=== PATIENT | female | born 2000 | race Caucasian/White ===

== ENCOUNTER 2023-06-18 15:13 | Outpatient (OUT) | payer BC, SELFPAY ==
--- NOTE | 2023-06-18 15:27 | US_ITS ---
[facility] [id number] Patient Name: DUNIA ENCARNACION MRN: [id number] date: 2000 Sex: F Assigned Patient Location: Current Patient Location: Accession/Order Number: [id number] Exam Date: 06/18/2023 16:00 Report Date: 06/19/2023 17:40 At the request of: CARINE COTO Procedure: US pelvis w/ transvaginal EXAMINATION: US pelvis w/ transvaginal HISTORY: Menorrhagia, irregular cycles COMPARISON: No relevant comparison available. FINDINGS: Transabdominal and transvaginal images The uterus is normal in size, contour and myometrial echotexture measuring 9.3 x 4.5 x 3.6 cm, anteflexed. No focal mass. The endometrium measures 3.6 mm, normal. The right ovary is normal measuring 2.6 x 1.6 x 1.5 cm. Normal color and Doppler flow. Anechoic exophytic area measuring 0.9 cm likely a cyst or follicle The left ovary is normal measuring 3.5 x 1.3 x 1.8 cm. Normal color Doppler flow No free fluid US/US pelvis w/ transvaginal IMPRESSION: Normal pelvic ultrasound Electronically authenticated by: LAURA FLOR Date: 06/19/2023 17:40
== END 2023-06-18 15:14 | disposition home or self-care (01) ==
LOC: US 15:19
PROVIDERS: PCP Nurse Practitioner; Visit Provider Nurse Practitioner
DX: N92.5 Other specified irregular menstruation (principal)
CPT/HCPCS: 76830; 76856

== ENCOUNTER 2024-07-11 07:03 | Emergency (ER) | payer OTHER, SELFPAY ==
[2024-07-11 07:07] VITALS: BP 138/88; PULSE 110; TEMP 37.4; O2SAT 99; BMI 33.3
--- OUTSIDE RECORDS SUMMARY | 2024-07-11 07:17 | XMS_ITS | CCD ---
Author Organization [facility] Care Team Providers Care Manager System Name Role Phone HOUSE, DR OSEGUERA Admitting Unavailable HOUSE, DR OSEGUERA Attending Unavailable [facility] [place] BELTRE Primary Care Unavailable HOUSE, DR OSEGUERA Consulting Unavailable SELMA WALKER Consulting Unavailable Digna Villanueva Unavailable ValSoraida obreogn Primary Care Physician Val, INDUCTION HEATING EQUIPMENT SETTER Soraida L Attending Unavailable Val, INDUCTION HEATING EQUIPMENT SETTER Soraida L Attending Unavailable Val, INDUCTION HEATING EQUIPMENT SETTER Soraida L Admitting Unavailable Val, INDUCTION HEATING EQUIPMENT SETTER Soraida Luis Attending Unavailable Val, INDUCTION HEATING EQUIPMENT SETTER Soraida L Attending Unavailable Val, INDUCTION HEATING EQUIPMENT SETTER Soraida L Attending Unavailable Allergies Allergy Classification Reported Allergen(s) Allergy Type Date of Onset Reaction(s) Facility (1 source) No Known Medication Allergies; Translations: [No Known Medication Allergies] Propensity to adverse reactions (disorder) [facility] Repository Problems Active Problems Problem Classification Problem Date Documented Da te Episodic/Chronic Administrative/social admission (1 source) Encounter for pre-employment examination Episodic Genitourinary symptoms and ill-defined conditions (1 source) Bacteriuria 05-30-2020 Episodic Malaise and fatigue (1 source) Fatigue 06-18-2023 Episodic Menstrual disorders (1 source) Menorrhagia 06-18-2023 Chronic Other and delivery including normal (1 source) Normal 05-30-2020 Episodic Residual codes; unclassified (1 source) H/O: ectopic 09-28-2019 Episodic Past or Other Problems Problem Classification Problem Date Documented Da te Episodic/Chronic Unclassified (3 sources) Onset: 10-26-2018 Resolved: 04-18-2020 01-09-2019 Results Test Name Value Interpretation Reference Range Facility Ambulatory Visit Summaryon 0 03-31-2024 Ambulatory Visit Summary Ambulatory Visit Summary FLOR ENCARNACION :2000 Visit Date:03/31/2024 Ambulatory Visit Instructions Your Diagnosis BMI 32.0-32.9,adult Non-smoker Your Care Team Attending Physician - Soraida Sesay Primary Care Physician - Soraida Sesay Procedures Performed Left fallopian tube (06/09/2019), Removal of ectopic from fallopian tube (06/09/2019). Discharge Vitals Heart Rate (Peripheral) 100 Respiratory Rate 18 Blood Pressure 108/76 Height 154.0 cm Height 61 in Weight 75.90 kg Weight 167.331 lb BMI 32 Allergies No Known Allergies No Known Medication Allergies Problems Ongoing - Any problem that you are currently receiving treatment for. Fatigue Hx of ectopic Menorrhagia Historical - Any problem that you are no longer receiving treatment for. GBS bacteriuria Supervision of normal in third trimester Patient Survey You may receive a survey via text or e-mail asking about your office visit. Please share your experience with us by completing your survey. We appreciate your feedback and thank you for choosing us for your care. Normal [facility] Family Medicine Office/Clini c Noteon 03-31-2024 Family Medicine Office/Clinic Note Family Medicine Office/Clinic Note HPI Staff Flor is a 23 year old female presenting for Control Pt here today to have nexplanon implant Pt did stop taking the metformin due to feeling light headed and nauseated. Did get past having diarrhea. History of Present Illness pt presents today for nexplanon insertion Review of Systems PHQ Score Initial Depression Screen Score: 0 SCORE Physical Exam Vitals & Measurements HR: 100(Peripheral) RR: 18 BP: 108/76 SpO2: 99% HT: 61 in HT: 154.0 cm WT: 75.90 kg WT: 167.331 lb BMI: 32 General: alert, no acute distress ENMT: oral mucosa moist, no pharyngeal erythema or exudate Cardiovascular: regular rate and rhythm, normal peripheral perfusion Respiratory: Lungs CTA, respirations non labored Extremities: no deformity, no trauma Neurological: oriented x 4, LOC appropriate for age, CN II-XII intact, motor strength equal & normal bilaterally, speech normal Procedure The patient was placed in the dorsal supine position with her non-dominant right arm flexed at the elbow and externally rotated. The area for insertion was marked approximately 8 cm from the medial epicondyle of the humerus over the triceps muscles. The area of planned insertion was prepped with {Betadin. 3cc of 1% lidocaine was injected subdermally along the planned insertion tunnel. The Nexplanon applicator was grasped, the protection cap was removed from the applicator and the white Nexplanon device was visualized within the applicator. The applicator needle was inserted subdermally in the standard fashion, and the device was deployed. The implant was palpated to verify correct subdermal location by myself and the patient. The site dressed with a pressure bandage. User card was completed after insertion and given to patient Assessment/Plan 1. Nexplanon insertion (Z30.017: Encounter for initial prescription of implantable subdermal contraceptive) pt presents today for nexplanon insertion. consent signed. time out complete. see procedure note for details. all questions answered.RTC as needed Ordered: etonogestrel, 68 mg = 1 EA, SubCutaneous, Once, Inserted in office, # 1 EA, Refills(s) 0, other reason (Rx) E&M of Est. Patient Low 20-29 Min 21149 Insert/drug delivery implant 25722 2. BMI 32.0-32.9,adult (Z68.32: Body mass index [BMI] 32.0-32.9, adult) BMI education Ordered: etonogestrel, 68 mg = 1 EA, SubCutaneous, Once, Inserted in office, # 1 EA, Refills(s) 0, other reason (Rx) E&M of Est. Patient Low 20-29 Min 43523 Insert/drug delivery implant 99565 3. Non-smoker (Z78.9: Other specified health status) continue not smoking Ordered: etonogestrel, 68 mg = 1 EA, SubCutaneous, Once, Inserted in office, # 1 EA, Refills(s) 0, other reason (Rx) E&M of Est. Patient Low 20-29 Min 33373 Insert/drug delivery implant [id number] Orders: metformin, 500 mg = 1 tab(s), Oral, BID, # 60 tab(s), Refills(s) 5, Pharmacy: [facility]/pharmacy #[id number], 154, cm, 06/18/23 14:43:00 EDT, Height/Length Dosing, 79.9, kg, 06/18/23 14:43:00 EDT, Weight Dosing metformin, 500 mg = 1 tab(s), Oral, BID, # 180 tab(s), Refills(s) 0, Pharmacy: [facility]/pharmacy #[id number], 154, cm, 03/31/24 9:28:00 EST, Height/Length Dosing, 75.9, kg, 03/31/24 9:28:00 EST, Weight Dosing Follow-up No qualifying data available Problem List/Past Medical History Ongoing Fatigue Hx of ectopic Menorrhagia Nexplanon insertion Historical GBS bacteriuria Supervision of normal in third trimester Procedure/Surgical History Left fallopian tube (06/09/2019), Removal of ectopic from fallopian tube (06/09/2019). Medications metformin 500 mg Tab, 500 mg= 1 tab(s), Oral, BID Nexplanon 68 mg subcutaneous implant, 68 mg= 1 EA, SubCutaneous, Once Allergies No Known Allergies No Known Medication Allergies Social History Alcohol - Denies Alcohol Use, 01/02/2019 Never. , 03/30/2024 Substance Abuse - Denies Substance Abuse, 01/02/2019 Never. , 03/30/2024 Tobacco - Denies Tobacco Use, 01/02/2019 Never (less than 100 in lifetime) Tobacco Use:., 03/30/2024 Family History Family history is negative Immunizations Vaccine Date Status Comments influenza virus vaccine, inactivated 11/26/2021 Recorded SARS-CoV-2 (COVID-19) Ad26 vaccine 01/04/2021 Recorded influenza virus vaccine, inactivated 12/20/2020 Recorded diphtheria/pertussis , acel/tetanus adult 02/01/2020 Given influenza virus vaccine, inactivated - Not Given Patient Refuses meningococcal conjugate vaccine 10/14/2017 Recorded varicella virus vaccine 09/07/2007 Recorded hepatitis A pediatric vaccine 09/07/2007 Recorded measles/mumps/rubell a virus vaccine 09/04/2004 Recorded diphtheria/pertussis , acel/tetanus ped 09/04/2004 Recorded poliovirus vaccine, inactivated 09/03/2004 Recorded varicella virus vaccine 05/01/2002 Recorded measles/mumps/rubell a virus vaccine 05/01/2002 Recorded haemophilus b conjug (more content not included)... Normal [facility] Comment on above: Result Comment: Elec tronically Signed By: Val SALVADOR, Soraida Smith\.br\Date and Time Signed: 03/31/24 11:34 EST Physician Orderon 06-21-2023 Physician Order [id number]# 1.00TIFF Normal [facility] RAD - Ultrasound Reporton RAD - Ultrasound Report [id number] #1.00TIFF Normal [facility] CBC w/ Auto Diffon Basophils/100 WBC (Bld) 0.5 % Normal 0.0-2.0 F [facility] Comment on above: Performed By: #### 2 [id number], [id number], [id number] #### [facility] [address] [place] [address] Basophils/Leukocytes Auto (Bld) [Pure # fraction] 0.1 E9/L Normal 0.0-0.2 [facility] Comment on above: Performed By: #### 2 115690, [id number], [id number] #### [facility] [address] [place] [address] Eosinophils (Bld) [#/Vol] 0.2 E9/L Normal 0.0-0.5 [facility] Comment on above: Performed By: #### 2 276700, [id number], [id number] #### [facility] [address] [place] [address] Eosinophils/100 WBC (Bld) 1.3 % Normal 0.0-8.0 [facility] Comment on above: Performed By: #### 2 010522, [id number], [id number] #### [facility] [address] [place] [address] Erythrocyte distribution width (RBC) [Ratio] 13.6 % Normal 10.9-14.2 [facility] Comment on above: Performed By: #### 2 041440, [id number], [id number] #### [facility] [address] [place] [address] Hematocrit (Bld) [Volume fraction] 38.4 % Normal 34.0-46.0 [facility] Comment on above: Performed By: #### 2 303727, [id number], [id number] #### [facility] [address] [place] [address] Hemoglobin (Bld) [Mass/Vol] 12.9 g/dL Normal 12.0-16.0 [facility] Comment on above: Performed By: #### 2 624272, [id number], [id number] #### [facility] [address] [place] [address] Lymphocytes (Bld) [#/Vol] 2.4 E9/L Normal 1.0-4.0 [facility] Comment on above: Performed By: #### 2 968618, 1609700, [id number] #### [facility] [address] [place] [address] Lymphocytes/100 WBC (Bld) 21.4 % Normal 14.0-50.0 [facility] Comment on above: Performed By: #### 2 218314, 3597526, 7678079 #### [facility] [address] [place] [address] MCH (RBC) [Entitic mass] 29.5 pg Normal 27.0-34.0 [facility] Comment on above: Performed By: #### 2 271587, 8793461, [id number] #### [facility] [address] [place] [address] MCHC (RBC) [Mass/Vol] 33.7 g/dL Normal 31.4-36.0 [facility] Comment on above: Performed By: #### 2 757872, 3136867, 3483439 #### [facility] [address] [place] [address] MCV (RBC) [Entitic vol] 87.8 fL Normal 80.0-100.0 F [facility] Comment on above: Performed By: #### 2 286919, 5320116, 9212541 #### [facility] [address] [place] [address] Monocytes (Bld) [#/Vol] 0.9 E9/L Normal 0.2-1.0 [facility] Comment on above: Performed By: #### 2 216541, 5804486, [id number] #### [facility] [address] [place] [address] Neutrophils (Bld) [#/Vol] 7.8 E9/L High 2.0-7.5 [facility] Comment on above: Performed By: #### 2 609776, 2182145, 3570150 #### [facility] [address] [place] [address] Neutrophils/100 WBC (Bld) 69.3 % Normal 36.0-75.0 [facility] Comment on above: Performed By: #### 2 274969, 9777626, 4336501 #### [facility] [address] [place] [address] Platelet mean volume (Bld) [Entitic vol] 9.0 fL Normal 6.4-10.8 [facility] Comment on above: Performed By: #### 2 635980, 3615093, 6262409 #### [facility] [address] [place] [address] Platelets (Bld) [#/Vol] 310.0 E9/L Normal 150.0-500.0 [facility] Comment on above: Performed By: #### 2 533178, 1255239, 7179184 #### [facility] [address] [place] [address] RBC (Bld) [#/Vol] 4.4 E12/L Normal 4.3-5.9 [facility] Comment on above: Performed By: #### 2 210458, 4258075, 3186297 #### [facility] [address] [place] [address] WBC corrected for nucl RBC Auto (Bld) [#/Vol] 11.3 E9/L High 4.0-11.0 [facility] Comment on above: Performed By: #### 2 930030, [id number], 8347913 #### [facility] [address] [place] [address] CHEMISTRYOrdered By: SYSTEM SYSTEM on 06-18-2023 Iron [Mass/Vol] 35 ug/dL Normal 35 - 153 mcg/dL Remisol Chem TSH Qn 1.44 m[IU]/L Normal 0.34 - 5.60 mcIU/mL Remisol Chem Family Medicine Office/Clini c Noteon 06-18-2023 Family Medicine Office/Clinic Note HPI Staff Flor is a 22 year old female presenting to discuss weight gain pt states she started going to the gym 01/30 3 times a week for at least and hour each time and changed to high protein low carb diet int he beginning lost over 10 pounds and has put that back and and some more. Pt menstrual cycle is is lasting 8-10 days heavy the whole time with clots. Pt had her Nexplanon removed in office here 9 weeks ago History of Present Illness pt presents today for weight gain and abnormal heavy periods Review of Systems PHQ Score Initial Depression Screen Score: 0 SCORE Physical Exam Vitals & Measurements HR: 80(Peripheral) RR: 18 BP: 130/72 SpO2: 99% HT: 61 in HT: 154.0 cm WT: 79.9 kg WT: 175.78 lb BMI: 33.69 General: alert, no acute distress ENMT: oral mucosa moist, no pharyngeal erythema or exudate Cardiovascular: regular rate and rhythm, normal peripheral perfusion Respiratory: Lungs CTA, respirations non labored Extremities: no deformity, no trauma Neurological: oriented x 4, LOC appropriate for age, CN II-XII intact, motor strength equal & normal bilaterally, speech normal Assessment/Plan 1. Menorrhagia (N92.0: Excessive and frequent menstruation with regular cycle) pt c/o heavy, painful clotty irregular cycles. is unable to lose weight. concerned about PCOS. labs ordered as well as pelvic u/s discussed possible IUD. will start metformin. pt will return in 3 weeks may try adipex as well. u/s to be done at [facility] Ordered: CBC w/ Auto Diff Iron Level Thyroid Stimulating Hormone 2. Fatigue (R53.83: Other fatigue) labs drawn today Ordered: CBC w/ Auto Diff Iron Level Thyroid Stimulating Hormone 3. BMI 33.0-33.9,adult (Z68.33: Body mass index [BMI] 33.0-33.9, adult) BMI eduction complete Ordered: CBC w/ Auto Diff Iron Level Thyroid Stimulating Hormone 4. Non-smoker (Z78.9: Other specified health status) continue not smoking Ordered: CBC w/ Auto Diff Iron Level Thyroid Stimulating Hormone Follow-up No qualifying data available Problem List/Past Medical History Ongoing Fatigue Hx of ectopic Menorrhagia Historical GBS bacteriuria Supervision of normal in third trimester Procedure/Surgical History Left fallopian tube (06/09/2019), Removal of ectopic from fallopian tube (06/09/2019). Medications No active medications Allergies No Known Allergies No Known Medication Allergies Social History Alcohol - Denies Alcohol Use, 01/02/2019 DENIES, Household alcohol concerns: No., 04/11/2020 Substance Abuse - Denies Substance Abuse, 01/02/2019 DENIES, Household substance abuse concerns: No., 04/11/2020 Tobacco - Denies Tobacco Use, 01/02/2019 Never (less than 100 in lifetime) Tobacco Use:. Never Smokeless Tobacco Use:. Household tobacco concerns: No., 06/18/2023 Family History Family history is negative Immunizations Vaccine Date Status Comments influenza virus vaccine, inactivated 11/26/2021 Recorded SARS-CoV-2 (COVID-19) Ad26 vaccine 01/04/2021 Recorded influenza virus vaccine, inactivated 12/20/2020 Recorded diphtheria/pertussis , acel/tetanus adult 02/01/2020 Given influenza virus vaccine, inactivated - Not Given Patient Refuses meningococcal conjugate vaccine 10/14/2017 Recorded varicella virus vaccine 09/07/2007 Recorded hepatitis A pediatric vaccine 09/07/2007 Recorded measles/mumps/rubell a virus vaccine 09/04/2004 Recorded diphtheria/pertussis , acel/tetanus ped 09/04/2004 Recorded poliovirus vaccine, inactivated 09/03/2004 Recorded varicella virus vaccine 05/01/2002 Recorded measles/mumps/rubell a virus vaccine 05/01/2002 Recorded haemophilus b conjugate (PRP-T) vaccine 05/01/2002 Recorded diphtheria/pertussis , acel/tetanus ped 05/01/2002 Recorded hepatitis B pediatric vaccine 10/13/2000 Recorded Hib, unspecified formulation 10/13/2000 Recorded DTaP, unspecified formulation 10/13/2000 Recorded hepatitis B pediatric vaccine 05/03/2000 Recorded Hib, unspecified formulation 05/03/2000 Recorded DTaP, unspecified formulation 05/03/2000 Recorded hepatitis B pediatric vaccine 02/18/2000 Recorded Hib, unspecified formulation 02/18/2000 Recorded DTaP, unspecified formulation 02/18/2000 Recorded Normal [facility] Comment on above: Result Comment: Elec tronically Signed By: Soraida Sesay\Date and Time Signed: 06/18/23 15:05 EDT HEMATOLOGYOrdered By: SYSTEM SYSTEM on 06-18-2023 Basophils/100 WBC (Bld) 0.5 % Normal 0.0 - 2.0 % Remisol Heme Basophils/Leukocytes Auto (Bld) [Pure # fraction] 0.1 E9/L Normal 0.0 - 0.2 E9/L Remisol Heme Eosinophils (Bld) [#/Vol] 0.2 E9/L Normal 0.0 - 0.5 E9/L Remisol Heme Eosinophils/100 WBC (Bld) 1.3 % Normal 0.0 - 8.0 % Remisol Heme Erythrocyte distribution width (RBC) [Ratio] 13.6 % Normal 10.9 - 14.2 % Remisol Heme Hematocrit (Bld) [Volume fraction] 38.4 % Normal 34.0 - 46.0 % Remisol Heme Hemoglobin (Bld) [Mass/Vol] 12.9 g/dL Normal 12.0 - 16.0 gm/dL Remisol Heme Lymphocytes (Bld) [#/Vol] 2.4 E9/L Normal 1.0 - 4.0 E9/L Remisol Heme Lymphocytes/100 WBC (Bld) 21.4 % Normal 14.0 - 50.0 % Remisol Heme MCH (RBC) [Entitic mass] 29.5 pg Normal 27.0 - 34.0 pg Remisol Heme MCHC (RBC) [Mass/Vol] 33.7 g/dL Normal 31.4 - 36.0 gm/dL Remisol Heme MCV (RBC) [Entitic vol] 87.8 fL Normal 80.0 - 100.0 fL Remisol Heme Monocytes (Bld) [#/Vol] 0.9 E9/L Normal 0.2 - 1.0 E9 /L Remisol Heme Monocytes/100 WBC (Bld) 7.5 % Normal 4.0 - 14.0 % Remisol Heme Neutrophils (Bld) [#/Vol] 7.8 E9/L High 2.0 - 7.5 E9/L Remisol Heme Neutrophils/100 WBC (Bld) 69.3 % Normal 36.0 - 75.0 % Remisol Heme Platelet mean volume (Bld) [Entitic vol] 9.0 fL Normal 6.4 - 10.8 fL Remisol Heme Platelets (Bld) [#/Vol] 310.0 E9/L Normal 150. 0 - 500.0 E9/L Remisol Heme RBC (Bld) [#/Vol] 4.4 E12/L Normal 4.3 - 5.9 E12/L Remisol Heme WBC corrected for nucl RBC Auto (Bld) [#/Vol] 11.3 E9/L High 4.0 - 11.0 E9/L Remisol Heme Ironon 06-18-2023 Iron [Mass/Vol] 35 microgram/dL Normal 35-153 [facility] Comment on above: Performed By: #### 2 [id number], [id number], [id number] #### [facility] [address] [place] [address] TSHon 06-18-2023 TSH Qn 1.44 m[IU]/L Normal 0.34-5.60 [facility] Comment on above: Performed By: #### 2 [id number], [id number], [id number] #### [facility] [address] [place] [address] Family Medicine Office/Clini c Noteon 04-23-2023 Family Medicine Office/Clinic Note HPI Staff Flor is a 22 year old female presenting to establish care Establish Care: History: Any previous diagnosis: History of seeing any specialist: When was your last doctors visit: Last provider: unknown Any recent labs: Pelvic/Pap: Hasn't had one yet Acute: Current issues/complaints: pt having Nexplanon issues had placed 04/18/20 in right arm, pt states she is wanting her Nexplanon removed and not wanting to get another one. Pt states since having the Nexplanon her menstrual cycle has been very irregular will go 3 months bleeding then stop for a few weeks then starts again. History of Present Illness pt presents today for removal of nexplanon Review of Systems PHQ Score Initial Depression Screen Score: 0 SCORE Physical Exam Vitals & Measurements HR: 100(Peripheral) RR: 18 BP: 126/74 SpO2: 100% HT: 61 in HT: 154 cm WT: 80.6 kg WT: 177.32 lb BMI: 33.99 General: alert, no acute distress ENMT: oral mucosa moist, no pharyngeal erythema or exudate Cardiovascular: regular rate and rhythm, normal peripheral perfusion Respiratory: Lungs CTA, respirations non labored Extremities: no deformity, no trauma Neurological: oriented x 4, LOC appropriate for age, CN II-XII intact, motor strength equal & normal bilaterally, speech normal nexplanon palpated right upper arm Procedure After first obtaining consent, nexplanon palpated in patient?s right arm. 1% lidocaine injected along length of nexplanon. Scalpel used to make incision over previous scar. Using mosquito forceps, tip of nexplanon grasped and removed without difficulty. 4x4 with coban placed over incision. Patient tolerated procedure well. Assessment/Plan 1. Encounter for Nexplanon removal (Z30.46: Encounter for surveillance of implantable subdermal contraceptive) pt presents today to have nexplanon removed. see procedure note for details. nexplanon removed she does not desire any other control at this time. all questions answered. RTC as needed Ordered: Removal non-biodegradable drug delivery implant Nexplanon 13169 2. BMI 33.0-33.9,adult (Z68.33: Body mass index [BMI] 33.0-33.9, adult) BMI education complete 3. Non-smoker (Z78.9: Other specified health status) continue not smoking Follow-up No qualifying data available Problem List/Past Medical History Ongoing Hx of ectopic Historical GBS bacteriuria Supervision of normal in third trimester Procedure/Surgical History Left fallopian tube (06/09/2019), Removal of ectopic from fallopian tube (06/09/2019). Medications Nexplanon 68 mg subcutaneous implant Allergies No Known Medication Allergies Social History Alcohol - Denies Alcohol Use, 01/02/2019 DENIES, Household alcohol concerns: No., 04/11/2020 Substance Abuse - Denies Substance Abuse, 01/02/2019 DENIES, Household substance abuse concerns: No., 04/11/2020 Tobacco - Denies Tobacco Use, 01/02/2019 Never (less than 100 in lifetime) Tobacco Use:. Never Smokeless Tobacco Use:. Household tobacco concerns: No., 04/23/2023 Family History Family history is negative Immunizations Vaccine Date Status Comments influenza virus vaccine, inactivated 11/26/2021 Recorded SARS-CoV-2 (COVID-19) Ad26 vaccine 01/04/2021 Recorded influenza virus vaccine, inactivated 12/20/2020 Recorded diphtheria/pertussis , acel/tetanus adult 02/01/2020 Given influenza virus vaccine, inactivated - Not Given Patient Refuses meningococcal conjugate vaccine 10/14/2017 Recorded varicella virus vaccine 09/07/2007 Recorded hepatitis A pediatric vaccine 09/07/2007 Recorded measles/mumps/rubell a virus vaccine 09/04/2004 Recorded diphtheria/pertussis , acel/tetanus ped 09/04/2004 Recorded poliovirus vaccine, inactivated 09/03/2004 Recorded varicella virus vaccine 05/01/2002 Recorded measles/mumps/rubell a virus vaccine 05/01/2002 Recorded haemophilus b conjugate (PRP-T) vaccine 05/01/2002 Recorded diphtheria/pertussis , acel/tetanus ped 05/01/2002 Recorded hepatitis B pediatric vaccine 10/13/2000 Recorded Hib, unspecified formulation 10/13/2000 Recorded DTaP, unspecified formulation 10/13/2000 Recorded hepatitis B pediatric vaccine 05/03/2000 Recorded Hib, unspecified formulation 05/03/2000 Recorded DTaP, unspecified formulation 05/03/2000 Recorded hepatitis B pediatric vaccine 02/18/2000 Recorded Hib, unspecified formulation 02/18/2000 Recorded DTaP, unspecified formulation 02/18/2000 Recorded Normal [facility] Comment on above: Result Comment: Elec tronically Signed By: Soraida Sesay\.br\Date and Time Signed: 04/23/23 13:45 EDT XR FOOT LT MIN 3 VIEWSon XR FOOT LT MIN 3 VIEWS EXAM: XR FOOT LT MIN 3 VIEWS HISTORY: Pain in left foot COMPARISON: None. TECHNIQUE: 3 views of the left foot. FINDINGS: Mineralization: Within normal limits. Bones: No acute fractures or dislocations. Joints: Normal joint spacing. Soft Tissues: Unremarkable. IMPRESSION: No acute osseous abnormality. Electronically authenticated by: SELMA WALKER Date: 2022-02-24 07:23 Normal [facility] Vital Signs Date Time Vital Sign Value Performing Clinician Facility 04-09-2022 14:10-0500 Body height 154.94 cm Digna Villanueva Other [facility] Other 04-09-2022 14:10-0500 Body mass index (BMI) [Ratio] 32.12 kg/m2 Digna Villanueva Other [facility] Other 04-09-2022 14:10-0500 Body temperature 98.2 [degF] Digna Villanueva Other [facility] Other 04-09-2022 14:10-0500 Body weight 77.11 kg Digna Villanueva Other [facility] Other 04-09-2022 14:10-0500 Respiratory rate 18 /min Digna Villanueva Other [facility] Other 04-09-2022 14:10-0500 SaO2% (BldA) [Mass fraction] 98 % Digna Villanueva Other [facility] Other Encounters Encounter Date Encounter Type Care Provider Facility Start: 03-31-2024 End: 03-31-2024 ambulatory INDUCTION HEATING EQUIPMENT SETTER Soraida L Val Facility:[facility] janice Start: 07-09-2023 End: 07-09-2023 ambulatory INDUCTION HEATING EQUIPMENT SETTER Soraida L Val Facility:[facility] janice Start: 06-18-2023 End: 06-18-2023 Lab Drop off Soraida L Val [facility] Start: 06-18-2023 End: 06-18-2023 ambulatory INDUCTION HEATING EQUIPMENT SETTER Soraida L Val [facility] Start: 04-23-2023 End: 04-23-2023 ambulatory INDUCTION HEATING EQUIPMENT SETTER Soraida L Val Facility:[facility] Start: 04-20-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 Facilit y:[facility] Start: 04-09-2022 End: 04-09-2022 ambulatory Digna Rich Other [facility] Other Start: 04-09-2022 Office outpatient visit 25 minutes Digna Villanueva [facility] Start: 02-23-2022 End: 02-24-[address] ANA ROSA DU Facility:[facility] Procedures Date Procedure Procedure Detail Performing Clinician Start: 06-09-2019 Removal of ectopic from fallopian tube Soraida Val Start: 06-09-2019 Structure of left fallopian tube (body structure) Soraida Val Comment on above: Removed with ectopic Immunizations Immunization Date Immunization Notes Care Provider Elliot [facility] 11-26-2021 influenza virus vaccine, unspecified formulation Soraida Val [facility] 01-04-2021 SARS-CoV-2 (COVID-19 ) Ad26 vaccine, recombinant Soraida Val [facility] 12-20-2020 influenza virus vaccine, unspecified formulation Soraida Val [facility] 02-01-2020 tetanus toxoid, redu regan diphtheria toxoid, and acellular pertussis vaccine, adsorbed Soraida Val [facility] 10-14-2017 meningococcal ACWY vaccine, unspecified formulation Soraida Val [facility] 09-07-2007 hepatitis A vaccine, unspecified formulation Soraida Val [facility] 09-07-2007 varicella virus vaccine Soraida Val [facility] 09-04-2004 diphtheria, tetanus toxoids and acellular pertussis vaccine Soraida Val [facility] 09-04-2004 measles, mumps and rubella virus vaccine Soraida Val [facility] 09-03-2004 poliovirus vaccine, unspecified formulation Soraida Val [facility] 05-01-2002 diphtheria, tetanus toxoids and acellular pertussis vaccine Soraida Val [facility] 05-01-2002 haemophilus influenz ae type b vaccine, PRP-T conjugate Soraida Val [facility] 05-01-2002 measles, mumps and rubella virus vaccine Soraida Val [facility] 05-01-2002 varicella virus vaccine Soraida Val [facility] 10-13-2000 DTaP, unspecified formulation Soraida Val [facility] 10-13-2000 hepatitis B vaccine, pediatric or pediatric/adolescent dosage Soraida Val [facility] 10-13-2000 Hib, unspecified formulation Soraida Val [facility] 05-03-2000 DTaP, unspecified formulation Soraida Val [facility] 05-03-2000 hepatitis B vaccine, pediatric or pediatric/adolescent dosage Soraida Val [facility] 05-03-2000 Hib, unspecified formulation Soraida Val [facility] 02-18-2000 DTaP, unspecified formulation Soraida Val [facility] 02-18-2000 hepatitis B vaccine, pediatric or pediatric/adolescent dosage Soraida Val [facility] 02-18-2000 Hib, unspecified formulation Soraida Val [facility] NEGATED: Highlighted row has not occurred!01-02-2019 influenza virus vaccine, unspecified formulation Soraida Val [facility] Payers Date Payer Category Payer Unknown [id number] [id number] [id number] 1999 Unknown [id number] 2.16.8 [id number] 1999 Unknown [id number] 2.16.8 [id number] 1999 Unknown [id number] 2.16.8 [id number] 1999 Unknown [id number] 2.16.8 [id number] 1999 Unknown [id number] 2.16.8 [id number] 1999 Unknown [id number] 2.16.8 [id number] 1959 Unknown [id number] 1959 Unknown [id number] Self-pay Social History Date Type Detail Facility Unknown if ever smoked [facility] Other Sex Assigned At [facility] Start: 06-18-2023 Tobacco smoking status Never s moked tobacco (finding) [facility] Tobacco smoking status Never [facility] Evaluation note 04-09-2022 Note Date & Type Note Facility 04-09-2022 Evaluation note Encounter Date Diagnosis Assessment Notes Apr, Pre-employment examination (ICD-10 - Z02.1) Paperwork scanned. Per information provided today in office pt should have no problems participating in working. Recommend follow up for regular checkups with primary care provider and routine immunization schedules [facility] Other Evaluation + Plan note Note Date & Type Note Facility Evaluation + Plan note Future Appointments Appointment Date:07/09/2023 03:00:00 PM Scheduled Provider:Soraida Sesay Location:[facility] Appointment Type:[facility] History general Narrative - Reported Note Date & Type Note Facility History general Narrative - Reported Type Medical History acne Hospitalization History No know Hospitalization history [facility] Other Hospital course Narrative Note Date & Type Note Facility Hospital course Narrative No data available for this section [facility] Hospital Discharge instructions Note Date & Type Note [facility] Discharge instructions No data available for this section [facility] Progress note Note Date & Type Note Facility Progress note No data available for this section [facility] Summary Purpose Family History No Family History Records Found No data available for this section No Family History Records Found Advance Directives No Advanced Directives Records FoundNo Advanced Directives Records Found Additional Source Comments INFORMATION SOURCE (unrecogn ized section and content) DATE CREATED AUTHOR 02/24/2022 [facility] DATE CREATED AUTHOR AUTHOR'S ORGANIZ ATION 04/01/2024 [facility] REASON FOR VISIT (unrecogniz ed section and content) WORK PHYSICAL Patient Care team informatio n (unrecognized section and content) Personnel Name: Soraida Sesay Address: Address: [address] [place] [id number] FOR RECORDS PERTAINING TO PATIENTS WHO ARE OR HAVE BEEN ENROLLED IN A CHEMICAL DEPENDENCY/SUBSTANCEABUSE PROGRAM, SOME INFORMATION MAY BE OMITTED. This clinical summary was aggregated from multiple sources. Caution should be exercised in using it in the provision of clinical care. This summary normalizes information from multiple sources, and as a consequence, information in this document may materially change the coding, format and clinical context of patient data. In addition, data may be omitted in some cases. CLINICAL DECISIONS SHOULD BE BASED ON THE PRIMARY CLINICAL RECORDS. [employer] [facility]. provides no warranty or guarantee of the accuracy or completeness of information in this document.
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
[2024-07-11] MEDS: ADACEL DIPH,PERTUSS(ACELL),TET VAC/PF 0.5 ML ADULT SYRINGE IM (07:33)
[2024-07-11 07:38] VITALS: PULSE 88; O2SAT 99
== END 2024-07-11 07:40 | disposition home or self-care (01) ==
PROVIDERS: Emergency Provider Emergency Medicine; PCP Nurse Practitioner
DX: S80.812A Abrasion, left lower leg, initial encounter (principal); S80.811A Abrasion, right lower leg, initial encounter; V40.5XXA Car driver injured in collision with pedestrian or animal in traffic accident, initial encounter; S50.11XA Contusion of right forearm, initial encounter; Z23 Encounter for immunization
CPT/HCPCS: 90471; 90715; 99284